=== PATIENT | female | born 1985 | race African-American/Black ===

== ENCOUNTER 2017-06-01 18:41 | Emergency (ER) | payer OTHER ==
[2017-06-01 18:49] VITALS: BP 92/65; BMI 25.8
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
== END 2017-06-01 20:05 | disposition home or self-care (01) ==
LOC: ER 18:55
DX: H10.32 Unspecified acute conjunctivitis, left eye (principal)
CPT/HCPCS: 99281; 99282

== ENCOUNTER 2017-09-17 08:24 | Emergency (ER) | payer OTHER ==
[2017-09-17 08:24] VITALS: BP 92/65
[2017-09-17 08:29] VITALS: BMI 26.2
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
[2017-09-17 09:11] LABS: BILIRUBIN,URINE NEGATIVE (NEGATIVE); BLOOD/HEMOGLOBIN,URINE 2+ (NEGATIVE); GLUCOSE, URINE NEGATIVE (NEGATIVE); KETONES,URINE NEGATIVE (NEGATIVE); LEUKOCYTE ESTERASE ,URINE 1+ (NEGATIVE); NITRITES,URINE NEGATIVE (NEGATIVE); PROTEIN,URINE NEGATIVE (NEGATIVE); UROBILINOGEN,URINE NORMAL (NORMAL)
[2017-09-17 09:34] LABS: APPEARANCE,URINE HAZY (CLEAR); BACTERIA,URINE TRACE /HPF (NEGATIVE); COLOR,URINE YELLOW (YELLOW); RBC,URINE 0-2 /HPF (NEGATIVE); SQUAMOUS EPITHELIAL CELL,UR RARE /HPF (NEGATIVE)
[2017-09-17 10:48] LABS: CHLAMYDIA TRACH URINE NOT DETECTED (NOT DETECT)
== END 2017-09-17 10:54 | disposition home or self-care (01) ==
LOC: ER 08:32
DX: R35.0 Frequency of micturition (principal); Z20.2 Contact with and (suspected) exposure to infections with a predominantly sexual mode of transmission
CPT/HCPCS: 81001; 87491; 87591; 99282